=== PATIENT | female | born 1995 | race Hispanic/Latino ===

== ENCOUNTER 2017-12-10 10:59 | Emergency (ER) | payer OTHER ==
[2017-12-10 11:06] VITALS: BP 149/88
--- NOTE | 2017-12-10 13:37 | Emergency Department Report ---
ED Female HPI - General Chief complaint: Urogenital-Female Stated complaint: FOREIGN BODY OBJECT Time Seen by Provider: 12/10/17 13:36 Source: patient Mode of arrival: Ambulatory Limitations: No Limitations - History of Present Illness Initial comments: This is a 22-year-old female presents with sensation of foreign object in the vagina. Patient reports feeling like a tampon stuck in vagina since last night. She does not remember taking it out last night. She tried filling around for the string and could not feel it this morning. Menses started 12/08/2017. Denies difficulty voiding, fever, abdominal pain, frequency , urgency, and dysuria. MD Complaint: other (foreign body sensation in her vagina) -: Last night Severity: mild Severity scale (0 -10): 0 Consistency: constant Improves with: none Worsens with: none Are you Now?: No Last Menstrual Period: 12/08/17 EDC: 09/14/18 Associated Symptoms: denies other symptoms - Related Data Sexually active: Yes : 0 Para: 0 A: 0 ED Review of Systems ROS: Stated complaint: FOREIGN BODY OBJECT Other details as noted in HPI Constitutional: denies: chills, fever Respiratory: denies: cough, shortness of breath, wheezing Cardiovascular: denies: chest pain, palpitations Gastrointestinal: denies: abdominal pain, nausea, diarrhea Genitourinary: other (sensation of tampon stuck in vagina). denies: urgency, dysuria, discharge Neurological: denies: headache, weakness, paresthesias Psychiatric: denies: anxiety, depression ED Physical Exam - General Limitations: No Limitations General appearance: alert, in no apparent distress, obese - Respiratory Respiratory exam: Present: normal lung sounds bilaterally. Absent: respiratory distress - Cardiovascular Cardiovascular Exam: Present: regular rate, normal rhythm, normal heart sounds. Absent: systolic murmur, diastolic murmur, rubs, gallop - GI/Abdominal GI/Abdominal exam: Present: soft, normal bowel sounds. Absent: organomegaly, mass - External exam: Present: normal external exam Speculum exam: Present: normal speculum exam Bi-manual exam: Present: normal bi-manual exam - Neurological Exam Neurological exam: Present: alert, oriented X3, normal gait - Psychiatric Psychiatric exam: Present: normal affect, normal mood - Skin Skin exam: Present: warm, dry, intact, normal color. Absent: rash ED Course Vital Signs 12/10/17 11:03 Temperature 98.6 F Pulse Rate 91 H Respiratory 18 Rate Blood Pressure 149/88 O2 Sat by Pulse 99 Oximetry ED Medical Decision Making - Medical Decision Making This is a 22-year-old female who presents with sensation of tampon being lodged in vagina. Patient was examined by me. Vitals are stable and in no acute distress. No labs ordered. Physical evaluation within normal limits, no visual foreign body identified. Discharged home in stable condition. F/U with PCP or REPAIR MILLER. Critical care attestation.: If time is entered above; I have spent that time in minutes in the direct care of this critically ill patient, excluding procedure time. ED Disposition Clinical Impression: Vaginal pain Retained tampon Qualifiers: Encounter type: initial encounter Qualified Code(s): T19.2XXA - Foreign body in vulva and vagina, initial encounter Disposition: DC- TO HOME OR SELFCARE Is pt being admited?: No Does the pt Need Aspirin: No Condition: Stable Instructions: Vaginal Foreign Body (ED) Additional Instructions: Follow-up by primary care provider or REPAIR MILLER if symptoms persist. Referrals: [facility] [place] [Outside] - 3-5 Days [facility] [Outside] - 3-5 Days [facility] [Outside] - 3-5 Days Forms: Work/School Release Form(ED) Time of Disposition: 14:28 Print Language: YAKUT
== END 2017-12-10 14:46 | disposition home or self-care (01) ==
LOC: ED 10:59
DX: T19.2XXA Foreign body in vulva and vagina, initial encounter (principal); R10.2 Pelvic and perineal pain; X58.XXXA Exposure to other specified factors, initial encounter; Y93.89 Activity, other specified; Y92.89 Other specified places as the place of occurrence of the external cause; Y99.8 Other external cause status

== ENCOUNTER 2018-03-31 14:26 | Emergency (ER) | payer SELFPAY ==
[2018-03-31 15:00] VITALS: BP 118/88
--- NOTE | 2018-03-31 16:02 | Emergency Department Report ---
Blank Doc - Documentation Documentation: Patient presents to the emergency department should complaining of right lower quadrant abdominal pain that radiates into her groin that started this morning. Patient describes the pain as sharp in nature and denies any pain management better or worse. Blood work will be obtained as well as a CAT scan of abdomen and pelvis. Care to be turned over by the mid-level care Provider with me available for consultation
[2018-03-31 16:12] LABS: Basophils % (Auto) 0.6 % (0.0-1.8); Eosinophils # (Auto) 0.1 K/mm3 (0.0-0.4); Eosinophils % (Auto) 1.3 % (0.0-4.3); Hematocrit 40.3 % (30.3-42.9); Hemoglobin 13.7 gm/dl (10.1-14.3); Lymphocytes # (Auto) 1.8 K/mm3 (1.2-5.4); Lymphocytes % (Auto) 25.2 % (13.4-35.0); Mean Corpuscular HGB Conc 34 % (30-34); Mean Corpuscular Hemoglobin 29 pg (28-32); Mean Corpuscular Volume 85 fl (79-97); Monocytes # (Auto) 0.3 K/mm3 (0.0-0.8); Monocytes % (Auto) 4.4 % (0.0-7.3); Platelet Count 207 K/mm3 (140-440); Red Blood Count 4.74 M/mm3 (3.65-5.03); Red Cell Distribution Width 13.3 % (13.2-15.2)
--- NOTE | 2018-03-31 16:21 | Emergency Department Report ---
ED Abdominal Pain HPI - General Chief Complaint: Abdominal Pain Stated Complaint: PAIN IN (R) LOWER SIDE Time Seen by Provider: 03/31/18 15:52 Source: patient Mode of arrival: Ambulatory Limitations: No Limitations - History of Present Illness MD Complaint: abdominal pain -: Gradual Location: RLQ Quality: cramping Improves With: nothing Worsens With: nothing Associated Symptoms: denies: nausea, vomiting, diarrhea, fever, chills, constipation, dysuria, hematemesis, hematochezia, melena, hematuria, anorexia, syncope - Related Data LMP (females 10-50): other (2 W) Allergies Allergy/AdvReac Type Severity Reaction Status Date / Time No Known Allergies Allergy Unverified 03/31/18 15:00 ED Review of Systems ROS: Stated complaint: PAIN IN (R) LOWER SIDE Other details as noted in HPI Comment: All other systems reviewed and negative Constitutional: denies: chills, fever Eyes: denies: eye pain ENT: denies: ear pain, throat pain Respiratory: denies: cough, orthopnea Cardiovascular: denies: chest pain, palpitations, dyspnea on exertion, orthopnea Endocrine: denies: excessive sweating, flushing, intolerance to cold, intolerance to heat Gastrointestinal: abdominal pain, other (1 DAY RLQ). denies: nausea, vomiting, diarrhea, constipation, hematemesis, melena, hematochezia Genitourinary: denies: urgency, dysuria Musculoskeletal: denies: back pain Skin: denies: rash, lesions Neurological: denies: headache, weakness Psychiatric: denies: anxiety, depression Hematological/Lymphatic: denies: easy bleeding ED Past Medical Hx - Past Medical History Additional medical history: irregular menses - Surgical History Additional Surgical History: wisdom teeth - Family History Family history: no significant - Social History Smoking Status: Current Every Day Smoker Substance Use Type: None ED Physical Exam - General Limitations: No Limitations General appearance: alert - Head Head exam: Present: atraumatic - Eye Eye exam: Present: normal appearance, PERRL Pupils: Present: normal accommodation - ENT ENT exam: Present: mucous membranes moist - Neck Neck exam: Present: normal inspection - Respiratory Respiratory exam: Present: normal lung sounds bilaterally - Cardiovascular Cardiovascular Exam: Present: regular rate - GI/Abdominal GI/Abdominal exam: Present: soft, normal bowel sounds. Absent: distended, tenderness, guarding, rebound, rigid, diminished bowel sounds - Rectal Rectal exam: Present: deferred - Extremities Exam Extremities exam: Present: normal inspection, full ROM, normal capillary refill. Absent: tenderness - Back Exam Back exam: Present: normal inspection, full ROM. Absent: tenderness, CVA tenderness (R), CVA tenderness (L), muscle spasm - Neurological Exam Neurological exam: Present: alert, oriented X3, CN II-XII intact, normal gait - Psychiatric Psychiatric exam: Present: normal affect, normal mood ED Course Vital Signs 03/31/18 14:56 Temperature 97.8 F Pulse Rate 80 Respiratory 16 Rate Blood Pressure 118/88 O2 Sat by Pulse 100 Oximetry ED Medical Decision Making - Lab Data Result diagrams: 03/31/18 15:40 03/31/18 15:40 - Radiology Data Radiology results: report reviewed, image reviewed - Differential Diagnosis RO APPENDICITIS; RO Critical care attestation.: If time is entered above; I have spent that time in minutes in the direct care of this critically ill patient, excluding procedure time. ED Disposition Clinical Impression: RLQ abdominal pain Disposition: TO HOME OR SELFCARE Is pt being admited?: No Does the pt Need Aspirin: No Condition: Stable Instructions: Abdominal Pain (ED) Additional Instructions: HYDRATE WELL DIET TOLERATED FOLLOW UP PCP REFERRAL GIVEN TODAY MOTRIN OR TYLENOL FOR PAIN ACTIVITY TOLERATED RETURN TO ER FOR WORSENING SYMPTOMS- FEVER, ONGOING PAIN Referrals: PRIMARY CARE, [Primary Care Provider] - 3-5 Days DHRUV RAMIREZ MD [Staff Physician] - 3-5 Days Time of Disposition: 18:43
[2018-03-31 16:22] LABS: Bilirubin,Urine NEG (Negative); Blood,Urine NEG (Negative); Color,Urine Yellow (Yellow); HCG Qualitative,Urine Negative (Negative); Mucus,Urine FEW /HPF; Protein,Urine <15 mg/dL mg/dL (Negative); Urobilinogen,Urine < 2.0 mg/dL (<2.0)
[2018-03-31 16:36] LABS: Alanine Aminotransferase 39 units/L (7-56); Albumin 4.6 g/dL (3.9-5)
[2018-03-31 16:36] LABS: BUN/Creatinine Ratio 17; Blood Urea Nitrogen 10 mg/dL (7-17); Calcium 9.5 mg/dL (8.4-10.2); Hemolysis Index 3
[2018-03-31 16:38] LABS: Bilirubin,Direct < 0.2 mg/dL (0-0.2)
--- NOTE | 2018-03-31 18:24 | Cat Scan Report ---
FINAL REPORT PROCEDURE: CT ABDOMEN PELVIS WO CON TECHNIQUE: Computerized axial tomography of the abdomen and pelvis was performed without intravenous contrast. This study is performed without intravascular contrast material and its sensitivity for abdominal and pelvic pathology, including neoplasms, inflammation, abscess, free fluid, thrombosis, arterial dissection and infarction, is reduced compared with a contrast enhanced study. HISTORY: abd pain COMPARISON: No prior studies are available for comparison. FINDINGS: Visualized lower thorax: No significant abnormality. Liver: There is diffuse low attenuation of the liver, compatible with fatty infiltration. Spleen: Normal size and attenuation. Gallbladder and biliary system: Normal. Pancreas: Normal. Adrenals: Normal. Kidneys: Normal. GI tract: The appendix is visualized and does not appear inflamed. No bowel obstruction or inflammation is seen. Lymph nodes and mesentery: Normal. Vasculature: Normal. Bladder: Normal. Reproductive organs: Grossly unremarkable. Peritoneum: Small amount of pelvic free fluid may be physiologic. Musculoskeletal structures: No significant abnormality. Other: None. IMPRESSION: Mild diffuse fatty infiltration of the liver. No acute abnormality is identified.
== END 2018-03-31 19:00 | disposition home or self-care (01) ==
LOC: ED 14:26
DX: R10.31 Right lower quadrant pain (principal); F17.200 Nicotine dependence, unspecified, uncomplicated
CPT/HCPCS: 36415; 74176; 80048; 80074; 81001; 81025; 84702; 85025

== ENCOUNTER 2018-04-06 10:58 | Emergency (ER) | payer SELFPAY ==
[2018-04-06 12:17] LABS: Basophils % (Auto) 0.6 % (0.0-1.8); Eosinophils # (Auto) 0.1 K/mm3 (0.0-0.4); Eosinophils % (Auto) 1.7 % (0.0-4.3); Hematocrit 42.9 % (30.3-42.9); Hemoglobin 14.3 gm/dl (10.1-14.3); Lymphocytes # (Auto) 1.9 K/mm3 (1.2-5.4); Lymphocytes % (Auto) 25.2 % (13.4-35.0); Mean Corpuscular HGB Conc 33 % (30-34); Mean Corpuscular Hemoglobin 29 pg (28-32); Mean Corpuscular Volume 86 fl (79-97); Monocytes # (Auto) 0.4 K/mm3 (0.0-0.8); Monocytes % (Auto) 4.9 % (0.0-7.3); Platelet Count 216 K/mm3 (140-440); Red Blood Count 5.01 M/mm3 (3.65-5.03); Red Cell Distribution Width 13.7 % (13.2-15.2)
[2018-04-06 12:22] LABS: Bacteria,Urine 2+ /HPF (Negative); Bilirubin,Urine NEG (Negative); Blood,Urine NEG (Negative); Color,Urine Yellow (Yellow); Mucus,Urine 2+ /HPF; Protein,Urine <15 mg/dL mg/dL (Negative); Urobilinogen,Urine < 2.0 mg/dL (<2.0)
[2018-04-06 12:23] LABS: HCG Qualitative,Urine Negative (Negative)
[2018-04-06 12:27] LABS: Amphetamine Screen,Urine PRESUMPTIVE NEGATIVE; Benzodiazepines Screen,Urine PRESUMPTIVE NEGATIVE; Cocaine Screen,Urine PRESUMPTIVE NEGATIVE; Methadone Screen,Urine PRESUMPTIVE NEGATIVE; Opiate Screen,Urine PRESUMPTIVE NEGATIVE
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
[2018-04-06 12:41] LABS: BUN/Creatinine Ratio 19; Blood Urea Nitrogen 13 mg/dL (7-17); Calcium 9.6 mg/dL (8.4-10.2); Hemolysis Index 4
[2018-04-06 12:48] LABS: Cannabinoid Screen,Urine PRESUMPTIVE POSITIVE
[2018-04-06] MEDS ORDERED: ATIVAN ONE (14:03)
[2018-04-06] MEDS ORDERED: HABITROL TD ONE (14:04)
[2018-04-06] MEDS ORDERED: ATIVAN PO ONE ×2 (14:04→22:09)
[2018-04-07] MEDS ORDERED: ATIVAN ONE (03:21)
[2018-04-07] MEDS ORDERED: HABITROL TD SCH (12:00)
--- NOTE | 2018-04-07 13:06 | Consultation ---
History of Present Illness - Reason for Consult Consult date: 04/07/18 Reason for consult: Mental Health Evaluation Requesting physician: WANDA ZAMUDIO - Chief Complaint Chief complaint: "I don't like myself" - History of Present Psychiatric Illness 22 years old white female presenting to the ER for depression and SI's. Today the patient is calm and cooperative during the assessment. She stated that she do not like herself because of her weight. She stated that she had SI's for several days, but denies a suicide plan when asked. She rate her depression 8/10 , with 10 being the worse. She stated that she want more for her life and that' s an issues as well. She stated that she cut her thighs in the past to help with her depression. She stated that she smoke marijuana to lower her depression. She stated that she feel hopeless, helpless, with no energy lately. She stated that she took Prozac in the past, but she stopped taking the medication because she gained weight. She stated that she have attempted suicide in the past. She denies HI's and AVH's. She denied erratic sleep and a poor appetite. She denies alcohol consumption (etoh). Medications and Allergies Allergies Allergy/AdvReac Type Severity Reaction Status Date / Time No Known Allergies Allergy Unverified 03/31/18 15:00 Home Medications Medication Instructions Recorded Confirmed Last Taken Type No Known Home Medications [No 04/06/18 04/06/18 Unknown History Reported Home Medications] Active Meds: Active Medications Nicotine (Habitrol) 14 mg TD ONCE WIN Past psychiatric history - Past Medical History Past Medical History: No medical history Past Surgical History: No surgical history - past Psychiatric treatment and history psychiatric treatment history: Hx of depression. Denies a fam psy hx. - Social History Social history: lives with family, other Mental Status Exam - Vital signs Last Vital Signs Temp 98.7 F 04/07/18 08:40 Pulse 85 04/07/18 08:40 Resp 20 04/07/18 08:40 BP 118/66 04/07/18 08:40 Pulse Ox 97 04/07/18 08:40 - Exam Narrative exam: MSE: Appearance: calm, cooperative Behavior: regular eye contact Speech: regular rate and tone Mood: "depressed" Affect: flat Thought Process: circumstantial Thought Content: denies HI's and AVH's Motor Activity: sitting up in the bed Cognition: A/O x 3 Insight: variable Judgment: variable Results Result Diagrams: 04/06/18 11:50 04/06/18 11:50 All other labs normal. Assessment and Plan Assessment and plan: Impression: MDD, Severe Type. Cannabis Use DO. Hx of self injury. Today the patient is calm and cooperative during the assessment. DDx: R/O Bipolar DO, R/O Personality DO Recommendation/Plan: Continue 1013 and start Wellbutrin 100 mg PO daily for depression. Discussed possible suicidality/medication induced joshua with the patient reference Wellbutrin. Dispo: The patient was referred to inpatient psy services. Will staff with Dr. Jenna lloyd.
[2018-04-07] MEDS: WELLBUTRIN PO SCH (14:05)
[2018-04-07] MEDS ORDERED: ATIVAN PO ONE (22:46)
[2018-04-08] MEDS ORDERED: VISTARIL ONE (09:26)
[2018-04-08] MEDS: VISTARIL PO SCH ×2 (09:45→22:00)
[2018-04-08] MEDS: WELLBUTRIN PO SCH (09:46)
--- NOTE | 2018-04-08 13:16 | Progress Note ---
Subjective - Reason for Consult Consult date: 04/08/18 Reason for consult: Psychiatry Follow-up - Chief Complaint Chief complaint: "I need to get it together" 22 years old white female presenting to the ER for depression and SI's. Today the patient is cooperative, but anxious during the assessment. She sated that her anxiety is brought on by not knowing her future. She stated that she forgot to state yesterday that she suffer from anxiety. She stated that she rate her anxiety 6/10, with 10 being the worse. She stated that she didn't sleep well last night because she was anxious. She denies SI/HI's and AVH's. She stated that her issues now is her "anxiety." She denies any side effects of her medication. Mental Status Exam - Vital signs Last Vital Signs Temp 98.8 F 04/08/18 12:05 Pulse 79 04/08/18 11:49 Resp 18 04/08/18 11:49 BP 109/53 04/08/18 11:49 Pulse Ox 96 04/08/18 11:49 - Exam Narrative exam: MSE: Appearance: cooperative Behavior: regular eye contact Speech: regular rate and tone Mood: anxious Affect: congruent to mood Thought Process: circumstantial Thought Content: denies SI/HI's and AVH's Motor Activity: sitting up in the bed Cognition: A/O x 3 Insight: fair Judgment: variable Assessment and Plan Impression: MDD, Severe Type. Cannabis Use DO. Unspecified Anxiety DO. Hx of self injury. Today the patient is cooperative, but anxious during the assessment. DDx: R/O Bipolar DO, R/O Personality DO Recommendation/Plan: Reevaluate 1013 in 24 hours to determine proper dispo. Continue Wellbutrin 100 mg PO daily for depression and start Vistaril 25 mg Po BID for anxiety. Discussed possible suicidality/medication induced joshua with the patient reference Wellbutrin. Dispo: If the patient's 1013 is rescinded tomorrow (04/09/2018), she can follow up with [facility] for outpatient psy services. Staffed with Dr. Jenna lloyd.
[2018-04-09] MEDS: WELLBUTRIN PO SCH (10:11)
[2018-04-09] MEDS: VISTARIL PO SCH (10:11)
--- NOTE | 2018-04-09 12:42 | Progress Note ---
Subjective - Reason for Consult Consult date: 04/09/18 Reason for consult: Psychiatric Follow-up Evaluation - Chief Complaint Chief complaint: "I'm ready to go" Patient is a 22 years old white female who presents to the ER for depression and SI's. Today the patient is cooperative and calm during the assessment. She states, " I'm feeling much better. I do not want to hurt myself at all." She later verbalizes " I've gotten really good about that. When I feel down/ depressed I know how to reach out to people before it gets too serious. My coping skills are holding ice, talking to my family ( especially my mom), and playing with my cat." She reports good sleep, appetite, and energy. Currently patient denies SI/HI's, A/VH's, and delusions. Patient is medication compliant. She denies any side effects of her medication. Provider contacted patient's boyfriend via phone with patient's consent( patient lives with boyfriend) at 3:03pm [phone]. Provider contacted patient's mom via phone with patient's consent ( Stella Bridges) at 3:11pm [phone]. Patient's mother expressed that she will assist patient financially with medication. Mental Status Exam - Vital signs Last Vital Signs Temp 98.8 F 04/09/18 07:10 Pulse 92 H 04/09/18 07:10 Resp 16 04/09/18 07:10 BP 118/65 04/09/18 07:10 Pulse Ox 100 04/09/18 07:10 - Exam Narrative exam: Mental Status Exam General Appearance: Causally Dressed-hospital gown Eye Contact: Intermittent Orientation: Alert and oriented x 4 (person, place, time, date, and situation) Attitude/Behavior: Cooperative Sensorium: Clear Psychomotor & Musculoskeletal Activity: Ambulatory/Sitting in bed Mood: " Ready to go" Anxious/depressed-less ( much improved) Affect: Appropriate/congruent mood Speech/Language: Regular rate and tone Thought Processes: Organized Thought Content: Reality oriented Perception: Patient denies A/V/T hallucinations Concentration/Attention: Intact Suicidal Ideations/Plan: Patient denies. Homicidal Ideations/Plan: Patient denies. Judgment: Fair Insight: Fair Assessment and Plan Impression: MDD, Severe Type. Cannabis Use DO. Unspecified Anxiety DO. Hx of self injury. Today the patient is calm and cooperative during the assessment. At the time of discharge patient is in no danger to self or others. Patient denies SI/HI's, A/VH's, and delusions. Patient/family informed in case of a psychiatric emergency patient is to return to the ER, call 911, or call the crisis line. Patient/family verbalized full understanding. DDx: R/O Bipolar DO, R/O Personality DO Recommendation/Plan: 1. Will rescind 1013. 2. Will continue Wellbutrin 100 mg PO daily for depression and Vistaril 25 mg Po BID for anxiety. Discussed possible suicidality/medication induced joshua with the patient reference Wellbutrin. 3. Patient has been given outpatient referrals. Will follow-up at the [facility] for outpatient psychiatric services. Dispo: Will rescind patient's 1013. Patient will follow-up at the [facility] for outpatient psychiatric services. Staffed with Dr. Lillian lloyd.
--- NOTE | 2018-04-09 15:53 | Emergency Department Report ---
Blank Doc - Documentation Documentation: She is now, cooperative and was deemed by psychiatry as not being a harm to herself. Patient will follow up with [facility] and will be discharged home.
[2018-04-09 16:19] VITALS: BP 122/86
== END 2018-04-09 16:17 | disposition home or self-care (01) ==
LOC: EEVIPCON 10:58 → ED 10:58
DX: F32.9 Major depressive disorder, single episode, unspecified (principal); F12.10 Cannabis abuse, uncomplicated; F41.9 Anxiety disorder, unspecified
CPT/HCPCS: 36415; 80048; 80307; 81001; 81025; 85025; 99284; G0480; 80320; Q0177